=== PATIENT | female | born 1985 | race Hispanic/Latino ===

== ENCOUNTER 2019-03-16 13:19 | Emergency (ER) | payer OTHER, SELFPAY ==
[2019-03-16] MEDS ORDERED: ACETAMINOPHEN 325 MG TABLET ONE (14:47)
[2019-03-16] MEDS ORDERED: NA CHLORIDE 0.9% 1,000 ML ONE ×2 (14:47→17:53)
[2019-03-16 14:58] LABS: Absolute Lymphocytes (CBC) 0.7 K/uL (0.7-4.9); Absolute Monocytes 0.7 K/uL (0.1-1.3); Absolute Neutrophil 13.8 K/uL (1.8-8.0); Basophils % 0.2 % (0-1.3); Eosinophils % 0.1 % (0-4.4); Hematocrit 35.5 % (36.0-45.0); Lymphocytes % 4.8 % (15.3-44.8); MPV 10.3 fL (7.6-11.3); Monocytes % 4.5 % (3.3-12.3); RBC Red Blood Cell Count 4.04 M/uL (3.86-4.86)
[2019-03-16] MEDS ORDERED: ACETAMINOPHEN 500 MG TAB ONE (15:11)
[2019-03-16 15:12] LABS: Potassium 3.3 mmol/L (3.5-5.1)
[2019-03-16 15:23] LABS: Urine Blood 2+ (NEG); Urine Glucose NEGATIVE (NEG); Urine Protein NEGATIVE (NEG); Urine Specific Gravity 1.015 (1.005-1.030)
[2019-03-16 15:27] LABS: Urine Bacteria <20 /HPF (<20); Urine RBC <5 /HPF (NONE SEEN); Urine Yeast PRESENT (NONE SEEN)
[2019-03-16 15:30] LABS: Urine Culture Reflex Order REFLEXED
[2019-03-16] MEDS ORDERED: FENTANYL CITR 100 MCG/2 ML ONE (15:52)
--- NOTE | 2019-03-16 16:00 | RAD REPORT ---
EXAM DESCRIPTION: CTAbdomen Pelvis W Contrast - 03/16/2019 3:49 pm CLINICAL HISTORY: Abdominal pain. iv only;Abd pain COMPARISON: No comparisons TECHNIQUE: Biphasic CT imaging of the abdomen and pelvis was performed with 100 ml non-ionic IV cont rast. All CT scans are performed using dose optimization technique as appropriate and may include automated exposure control or mA/KV adjustment according to patient size. FINDINGS: The lung bases are clear. The liver, spleen, pancreas, adrenal glands and kidneys are within normal limits. No bowel obstruction, free air, free fluid or abscess. The appendix is normal. No evidence of signi ficant lymphadenopathy. No suspicious bony findings. IMPRESSION: No acute intra-abdominal or pelvic finding.
--- NOTE | 2019-03-16 16:56 | EDPHYS ---
Physician Documentation [facility] Name: Miladis Rodriguez Age: 33 yrs Sex: Female : 1985 Arrival Date: 03/16/2019 Time: 13:22 Bed 16 Private MD: ED Physician Guero Moore HPI: 03/16 15:18 This 33 yrs old Female presents to ER via Ambulatory with complaints of Leg jr8 Injury. 15:18 The patient presents with pain. The complaints affect the medial aspect of left thigh jr8 and left quadriceps. Context: The problem was sustained at work, resulted from twisting of the extremity. Onset: The symptoms/episode began/occurred acutely, today. Modifying factors: The symptoms are alleviated by nothing. the symptoms are aggravated by movement, weight bearing. Associated signs and symptoms: The patient has no apparent associated signs or symptoms. Treatment prior to arrival includes: no previous treatment. Severity of symptoms: At their worst the symptoms were moderate, in the emergency department the symptoms are unchanged. The patient has not experienced similar symptoms in the past. The patient has not recently seen a physician. 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 Pain since then. Upon triage by nurse. Patient found to have fever and tachycardia. Denies feeling bad. No other symptoms reported . 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 - Social history:: Smoking status: Patient/guardian denies using tobacco. - Ebola Screening: : No symptoms or risks identified at this time. ROS: 15:18 Eyes: Negative for injury, pain, redness, and discharge, ENT: Negative for injury, jr8 pain, and discharge, Neck: Negative for injury, pain, and swelling, Cardiovascular: Negative for chest pain, palpitations, and edema, Respiratory: Negative for shortness of breath, cough, wheezing, and pleuritic chest pain, Abdomen/GI: Negative for abdominal pain, nausea, vomiting, diarrhea, and constipation, Back: Negative for injury and pain, Skin: Negative for injury, rash, and discoloration, Neuro: Negative for headache, weakness, numbness, tingling, and seizure. 15:18 Constitutional: Positive for fever. 15:18 MS/extremity: Positive for pain, tenderness, of the left leg. Exam: 15:18 Eyes: Pupils equal round and reactive to light, extra-ocular motions intact. Lids and jr8 lashes normal. Conjunctiva and sclera are non-icteric and not injected. Cornea within normal limits. Periorbital areas with no swelling, redness, or edema. ENT: Nares patent. No nasal discharge, no septal abnormalities noted. Tympanic membranes are normal and external auditory canals are clear. Oropharynx with no redness, swelling, or masses, exudates, or evidence of obstruction, uvula midline. Mucous membranes moist. Neck: Trachea midline, no thyromegaly or masses palpated, and no cervical lymphadenopathy. Supple, full range of motion without nuchal rigidity, or vertebral point tenderness. No Meningismus. Cardiovascular: Regular rate and rhythm with a normal S1 and S2. No gallops, murmurs, or rubs. Normal PMI, no JVD. No pulse deficits. Respiratory: Lungs have equal breath sounds bilaterally, clear to auscultation and percussion. No rales, rhonchi or wheezes noted. No increased work of breathing, no retractions or nasal flaring. Back: No spinal tenderness. No costovertebral tenderness. Full range of motion. Neuro: Awake and alert, GCS 15, oriented to person, place, time, and situation. Cranial nerves II-XII grossly intact. Motor strength 5/5 in all extremities. Sensory grossly intact. Cerebellar exam normal. Normal gait. 15:18 Abdomen/GI: Inspection: obese Bowel sounds: active, all quadrants, Palpation: soft, in all quadrants, moderate abdominal tenderness, in the left lower quadrant, mass, is not appreciated, rebound tenderness, is not appreciated, voluntary guarding, is not appreciated, involuntary guarding, is not appreciated, no appreciated organomegaly, Indicators: McBurney's point is not tender, Celeste's sign is negative, Rovsing's sign is negative, Liver: tenderness, is not appreciated. 15:18 Musculoskeletal/extremity: Extremities: grossly normal except: noted in the left leg: Patient has tenderness to the muscles of the left lateral and anterior thigh. No trauma noted. Subsequent finding of superficial laceration with erythema noted to left lateral calf with mild tenderness , ROM: full active range of motion, full passive range of motion, limited active range of motion due to pain, limited passive range of motion due to pain, Circulation is intact in all extremities. Sensation intact. Vital Signs: 13:27 BP 135 / 92; Pulse 125; Resp 16; Temp 101.3; Pulse Ox 98% on R/A; Weight 74.39 kg; la1 Height 4 ft. 10 in. (147.32 cm); Pain 7/10; 16:00 BP 115 / 80; Pulse 116; Resp 18 S; Temp 101.7(O); Pulse Ox 99% on R/A; Pain 7/10; aa5 16:50 BP 111 / 67; Pulse 111; Resp 16 S; Temp 98.5(O); Pulse Ox 99% on R/A; Pain 4/10; aa5 17:26 BP 110 / 84; Pulse 115; Resp 18 S; Temp 100.9(O); Pulse Ox 99% on R/A; aa5 18:40 BP 118 / 79; Pulse 105; Resp 18; Temp 101.2(O); Pulse Ox 98% on R/A; Pain 4/10; aa5 19:24 BP 113 / 84; Pulse 102; Resp 18; Temp 99.9(O); Pulse Ox 100% on R/A; tl2 20:40 BP 107 / 74; Pulse 105; Resp 18; Temp 99.9(O); Pulse Ox 100% ; tl2 13:27 Body Mass Index 34.28 (74.39 kg, 147.32 cm) la1 17:26 PA notified of VS aa5 MDM: 13:44 Patient medically screened. jr8 16:53 Data reviewed: vital signs, nurses notes, lab test result(s), radiologic studies, CT jr8 scan. Data interpreted: Pulse oximetry: on room air is 99 %. Interpretation: normal. Counseling: I had a detailed discussion with the patient and/or guardian regarding: the historical points, exam findings, and any diagnostic results supporting the discharge/admit diagnosis, lab results, radiology results, the need for outpatient follow up, a family practitioner, to return to the emergency department if symptoms worsen or persist or if there are any questions or concerns that arise at home. Response to treatment: the patient's symptoms have markedly improved after treatment. 03/16 14:30 Order name: Basic Metabolic Panel; Complete Time: 15:18 [facility] 03/16 18:28 Interpretation: Normal except: K 3.3; GLUC 118; GFR 78; CA 8.3. 03/16 14:30 Order name: CBC with Diff; Complete Time: 15:18 [facility] 03/16 18:27 Interpretation: Normal except: WBC 15.3; HGB 11.8; HCT 35.5; JOSELYN% 90.4; LYM% 4.8; NEUT cp A 13.8. 03/16 14:30 Order name: Creatinine for Radiology; Complete Time: 15:18 [facility] 03/16 14:30 Order name: Blood Culture Adult (2) [facility] 03/16 14:30 Order name: Urine Microscopic Only; Complete Time: 15:32 [facility] 03/16 18:27 Interpretation: Normal except: YEAST PRESENT; BUD PRESENT. 03/16 15:19 Order name: Urine Dipstick--Ancillary (enter results); Complete Time: 15:23 03/16 15:19 Order name: CT Abd/Pelvis - W/Contrast; Complete Time: 16:18 [facility] 03/16 15:19 Order name: Urine --Ancillary (enter results); Complete Time: 15:23 03/16 15:33 Order name: Urine Culture [facility] 03/16 17:33 Order name: Lactate [facility] 03/16 17:33 Order name: Procalcitonin; Complete Time: 18:22 [facility] 03/16 18:29 Interpretation: Within normal limits: Procalcitonin < 0.05. 03/16 17:34 Order name: Lactate; Complete Time: 18:09 [facility] 03/16 18:28 Interpretation: Within normal limits: LAC 0.8. 03/16 18:01 Order name: CPK; Complete Time: 18:26 [facility] 03/16 18:26 Interpretation: Reviewed. 03/16 18:51 Order name: Wound Culture aa5 03/16 14:30 Order name: IV Saline Lock; Complete Time: 14:52 [facility] 03/16 14:30 Order name: Labs collected and sent; Complete Time: 14:52 [facility] 03/16 14:30 Order name: Urine Test (obtain specimen); Complete Time: 15:03 [facility] 03/16 14:30 Order name: Urine Dipstick-Ancillary (obtain specimen); Complete Time: 15:03 jr8 03/16 18:33 Order name: Vital Signs: please update vitals; Complete Time: 18:40 cp Administered Medications: 14:51 Drug: NS 0.9% 1000 ml Route: IV; Rate: 1000 ml; Site: left antecubital; sg 16:40 Follow up: IV Status: Completed infusion; IV Intake: 1000ml aa5 15:03 Drug: Tylenol 1000 mg Route: PO; sg 16:00 Follow up: Response: No adverse reaction; Temperature is increased aa5 16:00 Drug: fentaNYL (PF) 50 mcg Route: IVP; Site: left antecubital; aa5 16:40 Follow up: Response: No adverse reaction; Pain is decreased aa5 17:20 Drug: Rocephin 1 grams Route: IV; Rate: calculated rate; Site: left antecubital; aa5 17:44 Drug: NS 0.9% 1000 ml Route: IV; Rate: 1000 ml; Site: left antecubital; aa5 19:00 Follow up: IV Status: Completed infusion; IV Intake: 1000ml aa5 17:44 Drug: Motrin 800 mg Route: PO; aa5 20:42 Follow up: Response: No adverse reaction; Temperature is decreased tl2 18:42 Drug: Bactrim (160 mg-800 mg (DS) 1 tablet Route: PO; aa5 20:42 Follow up: Response: No adverse reaction tl2 19:28 Drug: Clindamycin 900 mg Route: IVPB; Infused Over: 30 mins; Site: left antecubital; tl2 20:41 Follow up: IV Status: Completed infusion; IV Intake: 50ml tl2 Disposition: 03/16/19 19:55 Discharged to Home. Impression: Cellulitis of left lower limb - left upper leg. - Condition is Stable. - Discharge Instructions: Cellulitis, Adult. - Prescriptions for Clindamycin HCl 300 mg Oral Capsule - take 1 capsule by ORAL route every 6 hours for 10 days; 40 capsule. Ibuprofen 800 mg Oral Tablet - take 1 tablet by ORAL route every 8 hours As needed take with food; 30 tablet. Bactrim DS 800- 160 mg Oral Tablet - take 1 tablet by ORAL route every 12 hours for 10 days; 20 tablet. - Medication Reconciliation Form, Thank You Letter, Antibiotic Education, Prescription Opioid Use, Work release form form. - Follow up: Constantino Ramos DO; When: 2 - 3 days; Reason: Recheck today's complaints. - Problem is new. - Symptoms have improved. Addendum: 03/19/2019 08:39 Co-signature as Attending Physician, Guero Moore MD I agree with the assessment and c keita plan of care. Signatures: Dispatcher [employer] EDCelso Anderson RN RN sg Anderson, Corey, MD MD cha Calderon, Audri, RN RN aa5 Zaid Mary PA PA jr8 Madi Pineda RN RN la1 Guero Mcdaniels PA PA cp Marifer Lewis RN RN tl2 Corrections: (The following items were deleted from the chart) 03/16 17:33 16:54 03/16/2019 16:54 Discharged to Home. Impression: Strain of unspecified muscles, jr8 fascia and tendons at thigh level, left thigh; Local infection of the skin and subcutaneous tissue, unspecified. Condition is Stable. Forms are Medication Reconciliation Form, Thank You Letter, Antibiotic Education, Prescription Opioid Use. Follow up: Private Physician; When: 2 - 3 days; Reason: Wound Recheck, If symptoms return, Recheck today's complaints, Continuance of care, Re-evaluation by your physician. Problem is new. Symptoms have improved. jr8 18:28 18:27 Normal except: K 3.3; GLUC 118; GFR 78. cp cp 20:56 19:55 03/16/2019 19:55 Discharged to Home. Impression: Cellulitis of left lower limb - tl2 left upper leg. Condition is Stable. Prescriptions for Ibuprofen 800 mg Oral Tablet - take 1 tablet by ORAL route every 12 hours As needed take with food; 20 tablet, Cyclobenzaprine 10 mg Oral Tablet - take 1 tablet by ORAL route every 8 hours As needed; 30 tablet, Bactrim DS 800-160 mg Oral Tablet - take 1 tablet by ORAL route every 12 hours for 10 days; 20 tablet. and Forms are Medication Reconciliation Form, Thank You Letter, Antibiotic Education, Prescription Opioid Use. Follow up: Constantino Ramos; When: 2 - 3 days; Reason: Recheck today's complaints. Problem is new. Symptoms have improved. cp
--- NOTE | 2019-03-16 16:56 | ER ---
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 Denies any other symptoms. Transition of care: patient was not received from another setting of care. Onset of symptoms was March 16, 2019. Risk Assessment: Do you want to hurt yourself or someone else? Patient reports no desire to harm self or others. Initial Sepsis Screen: Does the patient meet any 2 criteria? Temp <36.0*C (96.8*F)) or > 38.3*C (100.9*F). HR > 90 bpm. Does the patient have a suspected source of infection? No. Patient's initial sepsis screen is negative. Care prior to arrival: None. 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 - Social history:: Smoking status: Patient/guardian denies using tobacco. - Ebola Screening: : No symptoms or risks identified at this time. Screenin:00 Abuse screen: Denies threats or abuse. Nutritional screening: No deficits noted. aa5 Tuberculosis screening: No symptoms or risk factors identified. Fall Risk None identified. Assessment: 14:00 General: Appears uncomfortable, Behavior is calm, cooperative. Pain: Complains of pain aa5 in lateral aspect of left thigh Pain does not radiate. Pain currently is 7 out of 10 on a pain scale. Quality of pain is described as sharp, shooting, Is continuous. Neuro: Level of Consciousness is awake, alert, obeys commands, Oriented to person, place, time, situation. Cardiovascular: Heart tones S1 S2 present Rhythm is regular. Respiratory: Airway is patent Respiratory effort is even, unlabored, Respiratory pattern is regular, symmetrical, Breath sounds are clear bilaterally. Denies cough, shortness of breath. GI: Patient currently denies diarrhea, nausea, vomiting. : Denies burning with urination, inability to void, urinary frequency, urgency. EENT: Denies nasal congestion, nasal discharge, sore throat . Derm: Skin is pink, warm \T\ dry. Musculoskeletal: Range of motion: intact in all extremities. 14:25 Reassessment: Laceration that is approximately 0.5 in long that is scabbed noted to aa5 lateral aspect of left thigh with surrounding redness to site noted. . 16:00 Reassessment: Patient is alert, oriented x 3, equal unlabored respirations, skin aa5 warm/dry/pink. Patient states symptoms have not improved. 16:50 Reassessment: Patient is alert, oriented x 3, equal unlabored respirations, skin aa5 warm/dry/pink. Patient states feeling better. 17:26 Reassessment: Patient is alert, oriented x 3, equal unlabored respirations, skin aa5 warm/dry/pink. 17:43 Reassessment: Patient is alert, oriented x 3, equal unlabored respirations, skin aa5 warm/dry/pink. Lactate and procalcitonin drawn and sent to lab, pt notified of wait time . 18:40 Reassessment: Patient is alert, oriented x 3, equal unlabored respirations, skin aa5 warm/dry/pink. Vital Signs: 13:27 BP 135 / 92; Pulse 125; Resp 16; Temp 101.3; Pulse Ox 98% on R/A; Weight 74.39 kg; la1 Height 4 ft. 10 in. (147.32 cm); Pain 7/10; 16:00 BP 115 / 80; Pulse 116; Resp 18 S; Temp 101.7(O); Pulse Ox 99% on R/A; Pain 7/10; aa5 16:50 BP 111 / 67; Pulse 111; Resp 16 S; Temp 98.5(O); Pulse Ox 99% on R/A; Pain 4/10; aa5 17:26 BP 110 / 84; Pulse 115; Resp 18 S; Temp 100.9(O); Pulse Ox 99% on R/A; aa5 18:40 BP 118 / 79; Pulse 105; Resp 18; Temp 101.2(O); Pulse Ox 98% on R/A; Pain 4/10; aa5 19:24 BP 113 / 84; Pulse 102; Resp 18; Temp 99.9(O); Pulse Ox 100% on R/A; tl2 20:40 BP 107 / 74; Pulse 105; Resp 18; Temp 99.9(O); Pulse Ox 100% ; tl2 13:27 Body Mass Index 34.28 (74.39 kg, 147.32 cm) la1 17:26 PA notified of VS aa5 ED Course: 13:22 Patient arrived in ED. rg4 13:27 Triage completed. la1 13:28 Arm band placed on left wrist. Antipyretics given from triage as ordered by an ER la1 provider. 13:32 Amber Gaona, ALEX is Primary Nurse. aa5 13:41 Zaid Mary PA is PHCP. jr8 13:41 Guero Moore MD is Attending Physician. jr8 14:00 Patient has correct armband on for positive identification. Bed in low position. Call aa5 light in reach. Side rails up X 1. 14:35 Initial lab(s) drawn, by me, sent to lab. First set of blood cultures drawn by me. sg Inserted saline lock: 20 gauge in left antecubital area, using aseptic technique. Blood collected. 14:50 Second set of blood cultures drawn by me. sg 15:24 Radiology exam delayed due to test not completed at this time. az 15:50 CT Abd/Pelvis - W/Contrast In Process Unspecified. EDMS 15:50 CT completed. Patient tolerated procedure well. Patient moved back from CT. bq 18:15 PHCP role handed off by Zaid Mary PA cp 18:15 Guero Mcdaniels PA is PHCP. cp 18:42 Ultrasound completed. Patient tolerated well. sg3 19:05 Report given to Marifer Lewis RN. aa5 19:53 Constantino Ramos DO is Referral Physician. cp 20:40 No provider procedures requiring assistance completed. IV discontinued, intact, tl2 bleeding controlled, No redness/swelling at site. Pressure dressing applied. Administered Medications: 14:51 Drug: NS 0.9% 1000 ml Route: IV; Rate: 1000 ml; Site: left antecubital; sg 16:40 Follow up: IV Status: Completed infusion; IV Intake: 1000ml aa5 15:03 Drug: Tylenol 1000 mg Route: PO; sg 16:00 Follow up: Response: No adverse reaction; Temperature is increased aa5 16:00 Drug: fentaNYL (PF) 50 mcg Route: IVP; Site: left antecubital; aa5 16:40 Follow up: Response: No adverse reaction; Pain is decreased aa5 17:20 Drug: Rocephin 1 grams Route: IV; Rate: calculated rate; Site: left antecubital; aa5 17:44 Drug: NS 0.9% 1000 ml Route: IV; Rate: 1000 ml; Site: left antecubital; aa5 19:00 Follow up: IV Status: Completed infusion; IV Intake: 1000ml aa5 17:44 Drug: Motrin 800 mg Route: PO; aa5 20:42 Follow up: Response: No adverse reaction; Temperature is decreased tl2 18:42 Drug: Bactrim (160 mg-800 mg (DS) 1 tablet Route: PO; aa5 20:42 Follow up: Response: No adverse reaction tl2 19:28 Drug: Clindamycin 900 mg Route: IVPB; Infused Over: 30 mins; Site: left antecubital; tl2 20:41 Follow up: IV Status: Completed infusion; IV Intake: 50ml tl2 Intake: 16:40 IV: 1000ml; Total: 1000ml. aa5 19:00 IV: 1000ml; Total: 2000ml. aa5 20:41 IV: 50ml; Total: 2050ml. tl2 Outcome: 16:54 Discharge ordered by . jr8 19:55 Discharge ordered by . cp 20:40 Discharged to home ambulatory. tl2 20:40 Condition: stable 20:40 Discharge instructions given to patient, Instructed on discharge instructions, follow up and referral plans. medication usage, Demonstrated understanding of instructions, follow-up care, medications, Prescriptions given X 4. 20:56 Patient left the ED. tl2 Addendum: 03/19/2019 11:04 Addendum: Culture Results: Positive wound culture. Bacteria is resistant to, has s s intermediate sensitivity, or is not tested against prescribed antibiotics. 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 Phone call Attempt #1 attempted to call patient as sensitivities are not routinely done on this identified organism. No answer, unable to leave VM. 11:05 Addendum: Culture Results: Certified letter sent to listed address for patient. s s Signatures: Dispatcher [employer] EDCelso Anderson, RN RN sg Gin Abdi Audri RN RN aa5 Tanisha Minor RN RN Zaid Rowe PA PA jr8 Madi Pineda RN RN la1 Guero Mcdaniels PA PA cp Knox, Taylor, RN RN 2 Eufemia Burgess [facility] Rayne Baptiste 3 Carie Jules Corrections: (The following items were deleted from the chart) 03/16 14:31 14:00 Pain: Complains of pain in lateral aspect of left thigh Pain does not radiate. aa5 Quality of pain is described as sharp, shooting, Is continuous, aa5 17:32 17:26 BP 110 / 84; Pulse 115bpm; Resp 18bpm; Spontaneous; Pulse Ox 99% RA; Temp 100.9F aa5 Oral; aa5 19:29 19:24 BP 113 / 84; tl2 tl2 19:49 19:24 BP 113 / 84; Pulse 102bpm; Resp 18bpm; Pulse Ox 100% RA; tl2 tl2
[2019-03-16] MEDS ORDERED: CEFTRIAXONE/SWI 1gm 1 GM/10 ML SYR ONE (17:37)
[2019-03-16] MEDS ORDERED: IBUPROFEN 400 MG TAB ONE (17:53)
[2019-03-16] MEDS ORDERED: SMZ./TMP. 800/160 MG TABLET ONE (18:56)
[2019-03-16 21:17] VITALS: TEMP 99.9; O2SAT 100
[2019-03-16 21:18] VITALS: BP 107/74
== END 2019-03-16 20:56 | disposition home or self-care (01) ==
LOC: ER 13:19
DX: L03.116 Cellulitis of left lower limb (principal)
CPT/HCPCS: 36415; 74177; 80048; 81003; 81015; 81025; 82550; 83605; 84145; 85025; 87040; 87070; 87086; 87088; 87205; 96361; 96365; 96375; 99284; J0696; J3010; J7030; Q9967

== ENCOUNTER 2022-05-02 12:16 | Emergency (ER) | payer SELFPAY ==
--- NOTE | 2022-05-02 13:57 | RAD REPORT ---
EXAM DESCRIPTION: RAD - Hand Left 3 View - 05/02/2022 1:24 pm CLINICAL HISTORY: PAIN COMPARISON: None. FINDINGS: No fracture, dislocation or periosteal reaction noted. No joint space narrowing, spurring or erosive changes the joint spaces. No foreign body or other soft tissue abnormality. IMPRESSION: Negative left hand examination.
--- NOTE | 2022-05-02 14:26 | EDPHYS ---
Physician Documentation [facility] Name: Miladis Rodriguez Age: 36 yrs Sex: Female : 1985 Arrival Date: 05/02/2022 Time: 12:19 Bed 12 Private MD: ED Physician Cody Adamson HPI: 05/02 14:00 This 36 yrs old Female presents to ER via Ambulatory with complaints of Hand cp Pain. 14:00 The patient or guardian reports pain, weakness, tingling of fingertips. The complaints cp affect the left index and left middle and left fourth and left fifth fingers. Onset: The symptoms/episode began/occurred 3 week(s) ago. 14:00 Associated signs and symptoms: Pertinent positives: tingling distally, Pertinent cp negatives: cyanosis distally, fever, numbness distally. 14:00 Severity of symptoms: in the emergency department the symptoms are unchanged, despite cp home interventions. 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 - Social history:: Smoking status: Patient denies any tobacco usage or history of. ROS: 14:05 Constitutional: Negative for body aches, chills, fever, poor PO intake. cp 14:05 Eyes: Negative for injury, pain, redness, and discharge. cp 14:05 Neck: Negative for pain with movement, pain at rest. 14:05 Cardiovascular: Negative for chest pain, palpitations. 14:05 Respiratory: Negative for cough, shortness of breath, wheezing. 14:05 Abdomen/GI: Negative for abdominal pain, nausea, vomiting, and diarrhea. 14:05 Back: Negative for pain at rest, pain with movement. 14:05 MS/extremity: Positive for pain, tingling, of the left hand, Negative for injury or acute deformity, decreased range of motion, swelling, warmth. 14:05 All other systems are negative. Exam: 14:10 Constitutional: The patient appears in no acute distress, alert, awake, non-toxic, well cp developed, well nourished. 14:10 Head/Face: Normocephalic, atraumatic. cp 14:10 Neck: C-spine: vertebral tenderness, is not appreciated, crepitus, is not appreciated, ROM/movement: is normal, is supple, without pain, no range of motions limitations, no nuchal rigidity. 14:10 Chest/axilla: Inspection: normal. 14:10 Cardiovascular: Rate: normal, Pulses: Pulses are 2+ in left radial artery. 14:10 Respiratory: the patient does not display signs of respiratory distress, Respirations: normal, no use of accessory muscles. 14:10 Back: pain, is absent, ROM is normal. 14:10 Musculoskeletal/extremity: Extremities: grossly normal except: noted in the left hand: pain, tenderness, There is no evidence of decreased ROM, swelling, ROM: full active range of motion, in the left hand, Perfusion: the extremity is normally perfused throughout, the left index and left middle and left fourth and left fifth fingers Tingling of extremity. Vital Signs: 12:47 BP 138 / 96; Pulse 72; Resp 16; Temp 97.6; Pulse Ox 100% ; Weight 74.84 kg; Height 4 ap3 ft. 9 in. (144.78 cm); Pain 5/10; 12:47 Body Mass Index 35.71 (74.84 kg, 144.78 cm) ap3 MDM: 14:25 Patient medically screened. cp 14:25 Data reviewed: vital signs, nurses notes, radiologic studies, plain films. 14:25 Counseling: I had a detailed discussion with the patient and/or guardian regarding: the historical points, exam findings, and any diagnostic results supporting the discharge/admit diagnosis, radiology results, the need for outpatient follow up, a family practitioner, to return to the emergency department if symptoms worsen or persist or if there are any questions or concerns that arise at home. 14:25 Differential diagnosis: closed fracture, tendonitis. 05/02 12:49 Order name: XRAY Hand LEFT 3 View; Complete Time: 15:01 ap3 05/02 15:01 Interpretation: Report reviewed. 05/02 14:24 Order name: Wrist Splint; Complete Time: 14:39 cp Administered Medications: No medications were administered Disposition: 17:44 Co-signature as Attending Physician, Cody Adamson MD. rn Disposition Summary: 05/02/22 14:25 Discharge Ordered Location: Home cp Problem: new cp Symptoms: are unchanged cp Condition: Stable cp Diagnosis - Pain in left hand cp Followup: cp - With: Private Physician - When: 1 week - Reason: Recheck today's complaints Discharge Instructions: - Discharge Summary Sheet cp - Musculoskeletal Pain cp - Peripheral Neuropathy cp Forms: - Medication Reconciliation Form cp - Thank You Letter cp - Antibiotic Education cp - Prescription Opioid Use cp Prescriptions: - Ibuprofen 800 mg Oral Tablet - take 1 tablet by ORAL route every 8 hours As needed take with food; 30 tablet; cp Refills: 0, Product Selection Permitted Signatures: Dispatcher [employer] EDCody Bunch MD MD rn Page, Corey, PA PA cp Prokisch, Amanda RN RN ap3 Corrections: (The following items were deleted from the chart) 05/03 14:06 05/02 14:25 Counseling: I had a detailed discussion with the patient and/or guardian cp regarding: the historical points, exam findings, and any diagnostic results supporting the discharge/admit diagnosis, radiology results, to return to the emergency department if symptoms worsen or persist or if there are any questions or concerns that arise at home, cp
--- NOTE | 2022-05-02 14:26 | ER ---
Nurse's Notes [facility] Name: Miladis Rodriguez Age: 36 yrs Sex: Female : 1985 Arrival Date: 05/02/2022 Time: 12:19 Bed 12 Private MD: Diagnosis: Pain in left hand Presentation: 05/02 12:45 Chief complaint: Patient states: her left hand has been hurting for approx 3 weeks, and ap3 states the pain will sometimes radiate into her left arm. Coronavirus screen: At this time, the client does not indicate any symptoms associated with coronavirus-19. Ebola Screen: No symptoms or risks identified at this time. Initial Sepsis Screen: Does the patient meet any 2 criteria? No. Patient's initial sepsis screen is negative. Does the patient have a suspected source of infection? No. Patient's initial sepsis screen is negative. Risk Assessment: Do you want to hurt yourself or someone else? Patient reports no desire to harm self or others. Onset of symptoms was April 11, 2022. 12:45 Method Of Arrival: Ambulatory ap3 12:47 Acuity: BRIAN 4 ap3 Triage Assessment: 12:47 General: Appears in no apparent distress. Behavior is calm, cooperative, appropriate ap3 for age. Pain: Complains of pain in left hand Pain radiates to left arm. Neuro: Level of Consciousness is awake, alert, obeys commands, Oriented to person, place, time. Cardiovascular: Patient's skin is warm and dry. Respiratory: Airway is patent Respiratory effort is even, unlabored. 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 - Social history:: Smoking status: Patient denies any tobacco usage or history of. Screenin:48 Abuse screen: Denies threats or abuse. Nutritional screening: No deficits noted. ap3 Tuberculosis screening: No symptoms or risk factors identified. 14:45 Fall Risk None identified. ss Assessment: 14:45 General: Appears in no apparent distress. comfortable, Behavior is calm, cooperative. ss Pain: Complains of pain in left hand Pain currently is 5 out of 10 on a pain scale. Neuro: Level of Consciousness is awake, alert, obeys commands, Oriented to person, place, time, situation. Cardiovascular: Capillary refill < 3 seconds is brisk in bilateral fingers. Respiratory: Airway is patent Respiratory effort is even, unlabored, Respiratory pattern is regular, symmetrical. GI: No signs and/or symptoms were reported involving the gastrointestinal system. Derm: Skin is intact, is healthy with good turgor, Skin is Skin is pink, warm \T\ dry. normal. Musculoskeletal: Circulation, motion, and sensation intact. Range of motion: intact in all extremities. Vital Signs: 12:47 BP 138 / 96; Pulse 72; Resp 16; Temp 97.6; Pulse Ox 100% ; Weight 74.84 kg; Height 4 ap3 ft. 9 in. (144.78 cm); Pain 5/10; 12:47 Body Mass Index 35.71 (74.84 kg, 144.78 cm) ap3 ED Course: 12:19 Patient arrived in ED. rg4 12:48 Triage completed. ap3 12:48 Arm band placed on right wrist. ap3 13:16 Guero Mcdaniels PA is PHCP. cp 13:16 Cody Adamson MD is Attending Physician. cp 13:26 XRAY Hand LEFT 3 View In Process Unspecified. EDMS 14:33 Tanisha Minor, ALEX is Primary Nurse. ss 14:45 Patient has correct armband on for positive identification. Bed in low position. Call ss light in reach. 15:01 No provider procedures requiring assistance completed. Patient did not have IV access ss during this emergency room visit. Velcro wrist splint applied to left wrist. Administered Medications: No medications were administered Medication: 14:45 VIS not applicable for this client. ss Outcome: 14:25 Discharge ordered by . cp 15:01 Discharged to home ambulatory. ss 15:01 Condition: good 15:01 Discharge instructions given to patient, Instructed on discharge instructions, follow up and referral plans. Demonstrated understanding of instructions, follow-up care. 15:03 Patient left the ED. ss Signatures: Dispatcher [employer] EDMS Tanisha Minor RN RN ss Guero Mcdaniels PA PA cp Garcia, Rubi rg4 Jazmin Alexander RN RN ap3
[2022-05-02 15:08] VITALS: BP 138/96; TEMP 97.6; O2SAT 100
== END 2022-05-02 15:03 | disposition home or self-care (01) ==
LOC: ER 12:16
DX: M79.642 Pain in left hand (principal)
CPT/HCPCS: 99283

== ENCOUNTER 2023-02-15 09:55 | Emergency (ER) | payer SELFPAY ==
--- NOTE | 2023-02-15 11:23 | RAD REPORT ---
EXAM DESCRIPTION: RAD - Humerus Right - 02/15/2023 10:34 am CLINICAL HISTORY: Right arm pain status post fall FINDINGS: No fracture is seen
--- NOTE | 2023-02-15 11:24 | RAD REPORT ---
EXAM DESCRIPTION: RAD - Forearm Right - 02/15/2023 10:34 am CLINICAL HISTORY: Right arm pain status post fall FINDINGS: No fracture is seen.
--- NOTE | 2023-02-15 11:57 | ER ---
Nurse's Notes [facility] Name: Miladis Rodriguez Age: 37 yrs Sex: Female : 1985 Arrival Date: 02/15/2023 Time: 09:55 Bed 9 Private MD: Diagnosis: Fall on same level from slipping, tripping and stumbling without subsequent striking against object;Pain in right arm Presentation: 02/15 10:04 Chief complaint: Patient states: she fell on her right arm 02/10/2023, and has ap3 since had pain from her right wrist that will sometimes radiate into her right shoulder. patient rates her pain as a 6/10 on the pain scale at this time. Coronavirus screen: At this time, the client does not indicate any symptoms associated with coronavirus-19. Ebola Screen: No symptoms or risks identified at this time. Initial Sepsis Screen: Does the patient meet any 2 criteria? No. Patient's initial sepsis screen is negative. Does the patient have a suspected source of infection? No. Patient's initial sepsis screen is negative. Risk Assessment: Do you want to hurt yourself or someone else? Patient reports no desire to harm self or others. Onset of symptoms was February 10, 2023. 10:04 Method Of Arrival: Ambulatory ap3 10:04 Acuity: BRIAN 4 ap3 Triage Assessment: 10:06 General: Appears in no apparent distress. Behavior is calm, cooperative. Pain: ap3 Complains of pain in right wrist Pain radiates to right arm Pain began 02/10/2023. Neuro: Level of Consciousness is awake, alert, obeys commands, Oriented to person, place, time, situation. Cardiovascular: Patient's skin is warm and dry. Respiratory: Airway is patent Respiratory effort is even, unlabored, Respiratory pattern is regular, symmetrical. 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 - Social history:: Smoking status: Patient denies any tobacco usage or history of. Screenin:07 Abuse screen: Denies threats or abuse. Nutritional screening: No deficits noted. ap3 Tuberculosis screening: No symptoms or risk factors identified. 11:26 [facility] ED Fall Risk Assessment (Adult) History of falling in the last 3 months, nj1 including since admission Yes- single mechanical fall (1 pt) Confusion or Disorientation No (0 pts) Intoxicated or Sedated No (0 pts) Impaired Gait No (0 pts) Mobility Assist Device Used No (0 pt) Altered Elimination No (0 pt) Score/Fall Risk Level 0 - 2 = Low Risk Oriented to surroundings, Maintained a safe environment, Hourly rounding (assess needs \T\ fall precautionary measures) done. Assessment: 11:10 Reassessment: Patient appears in no apparent distress at this time. Patient and/or nj1 family updated on plan of care and expected duration. Pain level reassessed. Patient is alert, oriented x 3, equal unlabored respirations, skin warm/dry/pink. See triage assessment. 11:10 Pain: Complains of pain in right arm Pain currently is 6 out of 10 on a pain scale. nj1 12:15 Pain: Complains of pain in right arm Pain currently is 6 out of 10 on a pain scale. nj1 12:15 Reassessment: Patient appears in no apparent distress at this time. Patient and/or nj1 family updated on plan of care and expected duration. Pain level reassessed. Patient is alert, oriented x 3, equal unlabored respirations, skin warm/dry/pink. Vital Signs: 10:04 BP 156 / 97; Pulse 74; Resp 17; Temp 98.9; Pulse Ox 100% ; Weight 74.84 kg; Height 4 ap3 ft. 11 in. ; Pain 6/10; 12:15 BP 133 / 84; Pulse 67; Resp 18; Pulse Ox 100% on R/A; nj1 10:04 Body Mass Index 33.33 (74.84 kg, 149.86 cm) ap3 10:04 Pain Scale: Adult ap3 ED Course: 09:59 Patient arrived in ED. ts1 10:06 Triage completed. ap3 10:07 Arm band placed on left wrist. ap3 10:09 Camille Mg FNP-C is PHCP. kb 10:09 Cody Adamson MD is Attending Physician. kb 10:34 Forearm Right XRAY In Process Unspecified. EDMS 10:34 Humerus Right XRAY In Process Unspecified. EDMS 11:05 Chelsea Heaton, RN is Primary Nurse. nj1 11:10 Patient has correct armband on for positive identification. Bed in low position. Call nj1 light in reach. Adult w/ patient. 12:15 Patient did not have IV access during this emergency room visit. nj1 12:26 No provider procedures requiring assistance completed. nj1 Administered Medications: No medications were administered Medication: 12:26 VIS not applicable for this client. nj1 Outcome: 11:56 Discharge ordered by . kb 12:15 Discharged to home ambulatory. nj1 12:15 Condition: stable 12:15 Discharge instructions given to patient, family, Instructed on discharge instructions, follow up and referral plans. medication usage, safety practices, Demonstrated understanding of instructions, follow-up care, medications, Prescriptions given X 1. 12:27 Patient left the ED. nj1 Signatures: Dispatcher [employer] EDMS Camille Mg, SHERIN[employer]OR GENER[employer] BUILDING-Jazmin Luogn RN RN ap3 Chelsea Heaton RN RN nj1 Cuca Kelsey PAS PAS ts1 Corrections: (The following items were deleted from the chart) 12: 12:25 Reassessment: Patient appears in no apparent distress at this time. Patient nj1 and/or family updated on plan of care and expected duration. Pain level reassessed. Patient is alert, oriented x 3, equal unlabored respirations, skin warm/dry/pink. nj1 12:26 12:25 Pain: Complains of pain in right arm Pain currently is 6 out of 10 on a pain [facility] scale. nj1 12:27 11:10 Reassessment: Patient appears in no apparent distress at this time. Patient nj1 and/or family updated on plan of care and expected duration. Pain level reassessed. Patient is alert, oriented x 3, equal unlabored respirations, skin warm/dry/pink. See triage assessment nj1
--- NOTE | 2023-02-15 11:57 | EDPHYS ---
Physician Documentation [facility] Name: Miladis Rodriguez Age: 37 yrs Sex: Female : 1985 Arrival Date: 02/15/2023 Time: 09:55 Bed 9 Private MD: ED Physician Cody Adamson HPI: 02/15 16:14 This 37 yrs old Female presents to ER via Ambulatory with complaints of Fall kb Injury. 16:14 Details of fall: The patient fell from an upright position. The patient has not kb recently seen a physician. 16:15 Onset: The symptoms/episode began/occurred 7 day(s) ago. Associated injuries: The kb patient sustained right arm, painful injury. Severity of symptoms: At their worst the symptoms were moderate, in the emergency department the symptoms are unchanged. The patient has not experienced similar symptoms in the past. 16:16 Pt reports she fell onto right arm 7 days ago and is still having pain. 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 - Social history:: Smoking status: Patient denies any tobacco usage or history of. ROS: 16:09 Constitutional: Negative for fever, chills, and weight loss. kb 16:09 MS/extremity: Positive for pain, of the right arm. 16:09 All other systems are negative. Exam: 16:14 Constitutional: This is a well developed, well nourished patient who is awake, alert, kb and in no acute distress. Head/Face: Normocephalic, atraumatic. ENT: Moist Mucous membranes Cardiovascular: Regular rate and rhythm with a normal S1 and S2. No gallops, murmurs, or rubs. No pulse deficits. Respiratory: Respirations even and unlabored. No increased work of breathing. Talking in full sentences Abdomen/GI: Soft, non-tender. No distention Skin: Warm, dry with normal turgor. Normal color. Neuro: Awake and alert, GCS 15, oriented to person, place, time, and situation. Moves all extremities. Normal gait. 16:14 Musculoskeletal/extremity: Extremities: grossly normal except: noted in the right arm: pain, ROM: intact in all extremities, Circulation is intact in all extremities. Sensation intact. Vital Signs: 10:04 BP 156 / 97; Pulse 74; Resp 17; Temp 98.9; Pulse Ox 100% ; Weight 74.84 kg; Height 4 ap3 ft. 11 in. ; Pain 6/10; 12:15 BP 133 / 84; Pulse 67; Resp 18; Pulse Ox 100% on R/A; nj1 10:04 Body Mass Index 33.33 (74.84 kg, 149.86 cm) ap3 10:04 Pain Scale: Adult ap3 MDM: 10:09 Patient medically screened. kb 15:33 Data reviewed: vital signs, nurses notes. kb 16:02 Differential diagnosis: contusion, fracture, sprain, strain. Counseling: I had a kb detailed discussion with the patient and/or guardian regarding: the historical points, exam findings, and any diagnostic results supporting the discharge/admit diagnosis, radiology results, the need for outpatient follow up, a family practitioner, to return to the emergency department if symptoms worsen or persist or if there are any questions or concerns that arise at home. 02/15 10:12 Order name: Forearm Right XRAY; Complete Time: 11:32 kb 02/15 10:12 Order name: Humerus Right XRAY; Complete Time: 11:32 kb Administered Medications: No medications were administered Disposition: 17:17 Co-signature as Attending Physician, Cody Adamson MD I reviewed the patient's care rn provided by the Advanced Practice Provider and agree with the diagnosis and treatment plan. Disposition Summary: 02/15/23 11:56 Discharge Ordered Location: Home kb Condition: Stable kb Diagnosis - Fall on same level from slipping, tripping and stumbling without subsequent kb striking against object - Pain in right arm kb Followup: kb - With: Emergency Department - When: As needed - Reason: Worsening of condition Followup: kb - With: Private Physician - When: 2 - 3 days - Reason: Recheck today's complaints, Continuance of care, Re-evaluation by your physician Discharge Instructions: - Discharge Summary Sheet kb - Musculoskeletal Pain kb Forms: - Medication Reconciliation Form kb - Thank You Letter kb - Antibiotic Education kb - Prescription Opioid Use kb Prescriptions: - Diclofenac Sodium 75 mg Oral tablet,delayed release (DR/EC) - take 1 tablet by ORAL route 2 times per day As needed; 30 tablet; Refills: 0, kb Product Selection Permitted Signatures: Dispatcher [employer] Camille Paredes, Cody Dangelo MD MD rn Jazmin Alexander RN RN ap3
[2023-02-15 12:32] VITALS: TEMP 98.9; O2SAT 100
[2023-02-15 12:33] VITALS: BP 133/84
== END 2023-02-15 12:27 | disposition home or self-care (01) ==
LOC: ER 09:55
DX: M79.601 Pain in right arm (principal); W01.0XXA Fall on same level from slipping, tripping and stumbling without subsequent striking against object, initial encounter
CPT/HCPCS: 99283

== ENCOUNTER 2023-06-03 10:45 | Emergency (ER) | payer SELFPAY ==
[2023-06-03] MEDS ORDERED: NA CHLORIDE 0.9% 1,000 ML ONE (11:07)
[2023-06-03] MEDS ORDERED: ONDANSETRON 4 MG/2 ML VIAL ONE (11:07)
[2023-06-03] MEDS ORDERED: KETOROLAC 30 MG/ML INJ ONE (11:07)
[2023-06-03 11:33] LABS: Specific Gravity 1.037 (1.005-1.030)
[2023-06-03 11:41] LABS: Specific Gravity > 1.030 (1.005-1.030); Urine Bacteria None Seen /HPF (<20); Urine Bilirubin NEGATIVE (Negative); Urine Blood 3+ (OVER) (Negative); Urine Clarity Extremely Turbid (Clear); Urine Color Yellow (Yellow); Urine Glucose NEGATIVE (Negative); Urine Mucus Slight /HPF (None Seen); Urine Protein 2+ (Negative); Urine RBC >50 /HPF (None Seen); Urine Urobilinogen 1+ (Normal); Urine pH 5.5 (5.0-7.0)
[2023-06-03 11:48] LABS: Absolute Lymphocytes (CBC) 1.6 K/uL (0.7-4.9); Hematocrit 28.1 % (36.0-45.0); Lymphocytes % 20.6 % (15.3-44.8); MCV 80.4 fL (80-100); MPV 8.7 fL (7.6-11.3); Platelets 233 thou/uL (152-406); RBC Red Blood Cell Count 3.49 M/uL (3.86-4.86)
[2023-06-03 12:06] LABS: ALT/SGPT 22 U/L (13-56); Albumin 2.8 g/dL (3.4-5.0); Alkaline Phosphatase 69 U/L (45-117); BUN Blood Urea Nitrogen 6 mg/dL (7-18); Bicarbonate 25 mEq/L (21-32); Glomerular Filtration Rate 109 ml/min (=/>90); Glucose Level 96 mg/dL (74-106); Lipase 41 U/L (13-75); Sodium Level 139 mEq/L (136-145)
[2023-06-03 12:10] LABS: AST/SGOT 8 U/L (15-37); Bilirubin Total < 0.1 mg/dL (0.2-1.0); Potassium 3.4 mEq/L (3.5-5.1)
--- NOTE | 2023-06-03 12:45 | RAD REPORT ---
EXAM DESCRIPTION: CT - Abdomen Pelvis W Contrast - 06/03/2023 12:25 pm CLINICAL HISTORY: ABD PAIN COMPARISON: Abdomen Pelvis W Contrast dated 03/16/2019 TECHNIQUE: Thin cut axial CT imaging of the abdomen and pelvis was performed following intravenous a dministration of 100 mL Isovue 300. Multiplanar reformats were generated and reviewed. All CT scans are performed using dose optimization technique as appropriate and may include automated exposure control or mA/KV adjustment according to patient size. FINDINGS: No suspicious findings in the lung bases. The liver shows numerous subcentimeter hypoattenuating foci too small to characterize, largest measur ing 7 millimeter in the inferior right lobe. Adrenal glands, spleen, and pancreas show no suspicious findings. Gallbladder is decompressed limiting evaluation. No evidence of intra or extrahepatic bilia ry ductal dilation. . Symmetric renal function is seen with no hydronephrosis or suspicious renal mass. Mildly prominent distal small bowel loops with fluid distention. No bowel wall thickening. Appendix i s unremarkable. No free air, free fluid or inflammatory stranding. No hernia, mass or bulky lymphaden opathy. The urinary bladder is without significant finding. Numerous cystic lesions in the region of the uterine cervix. Fluid accumulation within the endometria l cavity. Findings are not well evaluated. No suspicious adnexal lesions. No suspicious bony findings. IMPRESSION: Mildly prominent distal small bowel loops with fluid distention. Findings may relate to ongoing segmental enteritis. Please correlate clinically. Numerous cystic lesions in the region the uterine cervix, not well evaluated, could relate to numerou s nabothian cysts. Possibility of an underlying cervical mass cannot be excluded. Fluid accumulation within the endometrial cavity. Findings in the further evaluated by dedicated pelvic ultrasound, whic h can be performed on elective basis.
--- NOTE | 2023-06-03 13:13 | ER ---
Nurse's Notes [facility] Name: Miladis Rodriguez Age: 37 yrs Sex: Female : 1985 Arrival Date: 06/03/2023 Time: 10:45 Bed 20 Private MD: Diagnosis: Noninfective gastroenteritis and colitis, unspecified;Hematuria, unspecified Presentation: 06/03 10:54 Chief complaint: Patient states: R sided abd pain/ flank pain that has been ss intermittent x 1 week. + nausea. Coronavirus screen: Client denies travel out of the [place] in the last 14 days. Ebola Screen: Patient denies exposure to infectious person. Patient denies travel to an Ebola-affected area in the 21 days before illness onset. Initial Sepsis Screen: Does the patient meet any 2 criteria? No. Patient's initial sepsis screen is negative. Does the patient have a suspected source of infection? No. Patient's initial sepsis screen is negative. Risk Assessment: Do you want to hurt yourself or someone else? Patient reports no desire to harm self or others. Onset of symptoms was May 27, 2023. 10:54 Method Of Arrival: Ambulatory ss 10:54 Acuity: BRIAN 3 ss Historical: - Allergies: 10:56 No Known Allergies; ss - Home Meds: 10:56 None [Active]; ss - PMHx: 10:56 None; ss - PSHx: 10:56 None; ss - Immunization history:: Adult Immunizations up to date. - Social history:: Smoking status: unknown. Screenin:50 [facility] [place] ED Fall Risk Assessment (Adult) Score/Fall Risk Level 0 - 2 = Low Risk. Abuse eh3 screen: Denies threats or abuse. Denies injuries from another. Nutritional screening: No deficits noted. Tuberculosis screening: No symptoms or risk factors identified. Assessment: 10:50 General: Appears in no apparent distress. uncomfortable, Behavior is calm, cooperative, eh3 appropriate for age. Pain: Complains of pain in right lower quadrant Neuro: Level of Consciousness is awake, alert, obeys commands, Oriented to person, place, time, situation. Cardiovascular: Capillary refill < 3 seconds Patient's skin is warm and dry. Respiratory: Airway is patent Respiratory effort is even, unlabored, Respiratory pattern is regular, symmetrical. GI: Abdomen is round non-distended. Derm: Skin is healthy with good turgor, Skin is pink, warm \T\ dry. Musculoskeletal: Circulation, motion, and sensation intact. Range of motion: intact in all extremities. 11:45 Reassessment: Patient appears in no apparent distress at this time. Patient and/or eh3 family updated on plan of care and expected duration. Pain level reassessed. Patient is alert, oriented x 3, equal unlabored respirations, skin warm/dry/pink. 12:45 Reassessment: Patient appears in no apparent distress at this time. Patient and/or eh3 family updated on plan of care and expected duration. Pain level reassessed. Patient is alert, oriented x 3, equal unlabored respirations, skin warm/dry/pink. Vital Signs: 10:50 BP 128 / 85; Pulse 71; Resp 14; Temp 98.4(O); Pulse Ox 100% on R/A; eh3 11:42 BP 115 / 74; Pulse 71; Resp 16; Temp 98.3; Pulse Ox 98% ; Pain 5/10; sm8 12:45 BP 120 / 77; Pulse 68; Resp 18; Pulse Ox 100% on R/A; eh3 11:42 Pain Scale: Adult sm8 ED Course: 10:47 Patient arrived in ED. rg4 10:50 [facility]C [facility] kb 10:50 Jaquan Mejia MD is Attending Physician. kb 10:50 Patient has correct armband on for positive identification. Placed in gown. Bed in low eh3 position. Call light in reach. Side rails up X2. Provided Education on: Use of call goel. Pulse ox on. NIBP on. Door closed. Noise minimized. Lights dimmed. Warm blanket given. 10:50 Inserted saline lock: 20 gauge in left antecubital area, using aseptic technique. Blood eh3 collected. 10:53 Xiomara Mcdonald RN is Primary Nurse. eh3 10:56 Triage completed. ss 10:56 Arm band placed on right wrist. ss 12:27 CT Abd/Pelvis - IV Contrast Only In Process Unspecified. EDMS 13:19 No provider procedures requiring assistance completed. IV discontinued, intact, eh3 bleeding controlled, No redness/swelling at site. Pressure dressing applied. Administered Medications: 11:05 Drug: NS 0.9% IV 1000 ml Route: IV; Rate: 1 bolus; Site: left antecubital; eh3 12:30 Follow up: IV Status: Completed infusion; IV Intake: 1000ml 3 11:05 Drug: TORadol - Ketorolac IVP 15 mg Route: IVP; Site: left antecubital; eh3 12:00 Follow up: Response: No adverse reaction; Pain is decreased eh3 11:05 Drug: Ondansetron IVP 4 mg Route: IVP; Site: left antecubital; eh3 12:00 Follow up: Response: No adverse reaction; Nausea is decreased eh3 Medication: 13:19 VIS not applicable for this client. eh3 Intake: 12:30 IV: 1000ml; Total: 1000ml. 3 Outcome: 13:13 Discharge ordered by MD. álvarez 13:19 Discharged to home ambulatory. 3 13:19 Condition: stable 13:19 Discharge instructions given to patient, Instructed on discharge instructions, follow up and referral plans. medication usage, Demonstrated understanding of instructions, follow-up care, medications, Prescriptions given X 2. 13:24 Patient left the ED. 3 Signatures: Dispatcher [employer] EDMS Camille Mg, SERVER ENGINEER-C SERVER ENGINEER-Ckb Tanisha Martinez, RN RN Eufemia Choi 4 Xiomara Mcdonald RN RN 3 No Ramos 8
--- NOTE | 2023-06-03 13:13 | EDPHYS ---
Physician Documentation [facility] Name: Miladis Rodriguez Age: 37 yrs Sex: Female : 1985 Arrival Date: 06/03/2023 Time: 10:45 Bed 20 Private MD: ED Physician Jaquan Mejia HPI: 06/03 13:21 This 37 yrs old Female presents to ER via Ambulatory with complaints of Flank kb Pain. 13:21 The patient presents with abdominal pain right lower quadrant. Onset: The kb symptoms/episode began/occurred 1 week(s) ago. The symptoms do not radiate. Associated signs and symptoms: Pertinent positives: nausea, Pertinent negatives: diarrhea, fever, vomiting. The symptoms are described as constant. Modifying factors: The symptoms are alleviated by nothing, the symptoms are aggravated by nothing. Severity of pain: At its worst the pain was mild moderate in the emergency department the pain is unchanged. The patient has not experienced similar symptoms in the past. The patient has not recently seen a physician. Historical: - Allergies: 10:56 No Known Allergies; ss - Home Meds: 10:56 None [Active]; ss - PMHx: 10:56 None; ss - PSHx: 10:56 None; ss - Immunization history:: Adult Immunizations up to date. - Social history:: Smoking status: unknown. ROS: 13:20 Constitutional: Negative for fever, chills, and weight loss. kb 13:20 Abdomen/GI: Positive for abdominal pain, nausea, Negative for vomiting, diarrhea, constipation. 13:20 Back: Positive for flank pain, on the right. 13:20 All other systems are negative. Exam: 13:20 Constitutional: This is a well developed, well nourished patient who is awake, alert, kb and in no acute distress. Head/Face: Normocephalic, atraumatic. ENT: Moist Mucous membranes Cardiovascular: Regular rate and rhythm with a normal S1 and S2. No gallops, murmurs, or rubs. No pulse deficits. Respiratory: Respirations even and unlabored. No increased work of breathing. Talking in full sentences Back: No spinal tenderness. No costovertebral tenderness. Full range of motion. Skin: Warm, dry with normal turgor. Normal color. MS/ Extremity: Pulses equal, no cyanosis. Neurovascular intact. Full, normal range of motion. Neuro: Awake and alert, GCS 15, oriented to person, place, time, and situation. Moves all extremities. Normal gait. 13:20 Abdomen/GI: Inspection: abdomen appears normal, Bowel sounds: normal, Palpation: soft, in all quadrants, mild abdominal tenderness, in the right lower quadrant. Vital Signs: 10:50 BP 128 / 85; Pulse 71; Resp 14; Temp 98.4(O); Pulse Ox 100% on R/A; eh3 11:42 BP 115 / 74; Pulse 71; Resp 16; Temp 98.3; Pulse Ox 98% ; Pain 5/10; sm8 12:45 BP 120 / 77; Pulse 68; Resp 18; Pulse Ox 100% on R/A; eh3 11:42 Pain Scale: Adult sm8 MDM: 10:50 Patient medically screened. kb 13:20 Differential diagnosis: nephrolithiasis, pyelonephritis, UTI, appendicitis. Data kb reviewed: vital signs, nurses notes. Counseling: I had a detailed discussion with the patient and/or guardian regarding: the historical points, exam findings, and any diagnostic results supporting the discharge/admit diagnosis, lab results, radiology results, the need for outpatient follow up, a family practitioner, an OB/Gyne specialist, to return to the emergency department if symptoms worsen or persist or if there are any questions or concerns that arise at home. 06/03 10:53 Order name: CBC with Diff; Complete Time: 11:53 kb 06/03 10:53 Order name: CMP; Complete Time: 12:12 kb 06/03 10:53 Order name: Lipase; Complete Time: 12:12 kb 06/03 10:53 Order name: Test, Urine; Complete Time: 11:39 kb 06/03 10:53 Order name: Urinalysis w/ reflexes; Complete Time: 11:42 kb 06/03 10:53 Order name: CT Abd/Pelvis - IV Contrast Only; Complete Time: 12:56 kb 06/03 10:53 Order name: IV Saline Lock; Complete Time: 11:13 kb 06/03 10:53 Order name: Labs collected and sent; Complete Time: 11:13 kb Administered Medications: 11:05 Drug: NS 0.9% IV 1000 ml Route: IV; Rate: 1 bolus; Site: left antecubital; eh3 12:30 Follow up: IV Status: Completed infusion; IV Intake: 1000ml 3 11:05 Drug: TORadol - Ketorolac IVP 15 mg Route: IVP; Site: left antecubital; 3 12:00 Follow up: Response: No adverse reaction; Pain is decreased eh3 11:05 Drug: Ondansetron IVP 4 mg Route: IVP; Site: left antecubital; 3 12:00 Follow up: Response: No adverse reaction; Nausea is decreased 3 Disposition: 16:50 Co-signature as Attending Physician, Jaquan Mejia MD I agree with the assessment and kdr plan of care. Disposition Summary: 06/03/23 13:13 Discharge Ordered Location: Home kb Condition: Stable kb Diagnosis - Noninfective gastroenteritis and colitis, unspecified kb - Hematuria, unspecified kb Followup: kb - With: Emergency Department - When: As needed - Reason: Worsening of condition Followup: kb - With: Private Physician - When: 2 - 3 days - Reason: Recheck today's complaints, Continuance of care, Re-evaluation by your physician Discharge Instructions: - Discharge Summary Sheet kb - Food Choices to Help Relieve Diarrhea, Adult kb - Viral Gastroenteritis, Adult kb - Urinary Tract Infection, Adult, [id number] kb Forms: - Medication Reconciliation Form kb - Thank You Letter kb - Antibiotic Education kb - Prescription Opioid Use kb - Patient Portal Instructions kb - Leadership Thank You Letter kb Prescriptions: - Augmentin 875-125 mg Oral Tablet - take 1 tablet by ORAL route every 12 hours for 10 days; 20 tablet; Refills: 0, kb Product Selection Permitted - Zofran 4 mg Oral Tablet - take 1 tablet by ORAL route every 6 hours As needed; 12 tablet; Refills: 0, kb Product Selection Permitted Signatures: Dispatcher [employer] Camille Paredes, VIGNESH-C Jaquan Abraham MD MD kdr Blanchard, Shelby, RN RN Xiomara Mcdonald RN RN 3
[2023-06-03 13:49] VITALS: TEMP 98.3
[2023-06-03 13:50] VITALS: BP 120/77; O2SAT 100
== END 2023-06-03 13:24 | disposition home or self-care (01) ==
LOC: ER 10:45
DX: K52.9 Noninfective gastroenteritis and colitis, unspecified (principal); R31.9 Hematuria, unspecified
CPT/HCPCS: 36415; 74177; 80053; 81001; 81025; 83690; 85025; 96361; 96374; 96375; 99284; J2405; J7030; Q9967

== ENCOUNTER → 2023-12-10 | Emergency (ER) | payer SELFPAY ==
[~2023-12-10] MED LIST: CYCLOBENZAPRINE 10 MG TAB ONE; KETOROLAC 30 MG/ML INJ ONE; dexAMETHasone 10 MG/ML VIAL ONE
--- NOTE | 2023-12-10 19:32 | RAD REPORT ---
EXAM DESCRIPTION: CT - C Spine Wo Con - 12/10/2023 7:25 pm CLINICAL HISTORY: Pain;Numbness/tingling COMPARISON: No comparisons TECHNIQUE: CT Scan was obtained of the cervical spine without contrast. Reformats were provided in t he sagittal and coronal plane. FINDINGS: No acute fracture of the cervical spine. No traumatic malalignment. No prevertebral edema. No significant focal degenerative changes. No suspicious thyroid nodules or lymphadenopathy. The hollis g apices are clear. Trace anterolisthesis of C2 on C3 which is probably of little significance. IMPRESSION: No fracture or traumatic malalignment of the cervical spine. No significant focal degene rative changes. If symptoms persist, could consider nonemergent cervical spine MRI.
--- NOTE | 2023-12-10 19:36 | ER ---
Nurse's Notes [facility] Name: Miladis Rodriguez Age: 38 yrs Sex: Female : 1985 Arrival Date: 12/10/2023 Time: 18:30 Bed 16 Private MD: Diagnosis: Strain of other muscles, fascia and tendons at shoulder and upper arm level, left arm, initial encounter Presentation: 12/10 18:37 Chief complaint: Patient states: left shoulder pain x 2 weeks, works at [employer] and ko1 might have pulled something. Coronavirus screen: At this time, the client does not indicate any symptoms associated with coronavirus-19. Ebola Screen: No symptoms or risks identified at this time. Initial Sepsis Screen: Does the patient meet any 2 criteria? No. Patient's initial sepsis screen is negative. Does the patient have a suspected source of infection? No. Patient's initial sepsis screen is negative. Risk Assessment: Do you want to hurt yourself or someone else? Patient reports no desire to harm self or others. Onset of symptoms is unknown. 18:37 Method Of Arrival: Ambulatory ko1 18:37 Acuity: BRIAN 4 ko1 Triage Assessment: 18:41 General: Appears in no apparent distress. uncomfortable, Behavior is calm, cooperative, ko1 appropriate for age. Pain: Complains of pain in left supraclavicular area and left arm. Historical: - Allergies: 18:41 No Known Allergies; ko1 - Home Meds: 18:41 None [Active]; ko1 - PMHx: 18:41 None; ko1 - PSHx: 18:41 None; ko1 - Immunization history:: Adult Immunizations up to date. - Social history:: Smoking status: Patient denies any tobacco usage or history of. Screenin:10 [facility] ED Fall Risk Assessment (Adult) Score/Fall Risk Level 0 - 2 = Low Risk nj1 Oriented to surroundings, Maintained a safe environment, Hourly rounding (assess needs \T\ fall precautionary measures) done. Abuse screen: Denies threats or abuse. Denies injuries from another. Nutritional screening: No deficits noted. Tuberculosis screening: No symptoms or risk factors identified. Assessment: 19:10 General: Appears in no apparent distress. uncomfortable, Behavior is calm, cooperative, nj1 appropriate for age. Pain: Complains of pain in neck, left Pain currently is 5 out of 10 on a pain scale. 19:10 Neuro: Level of Consciousness is awake, alert, obeys commands, Oriented to person, nj1 place, time, situation. Cardiovascular: Patient's skin is warm and dry. Respiratory: Airway is patent Respiratory effort is even, unlabored. Musculoskeletal: Reports pain in neck, left. 19:46 Reassessment: Patient appears in no apparent distress at this time. Patient is alert, nj1 oriented x 3, equal unlabored respirations, skin warm/dry/pink. Patient states feeling better. Vital Signs: 18:37 BP 149 / 100; Pulse 95; Resp 16; Temp 97.7; Pulse Ox 100% ; ko1 19:46 Pain 3/10; nj1 19:46 Pain 3/10; nj1 19:47 BP 120 / 83; Pulse 73; Resp 16; Pulse Ox 98% on R/A; Pain 3/10; nj1 19:46 Pain Scale: Adult nj1 19:46 Pain Scale: Adult nj1 19:47 Pain Scale: Adult nj1 ED Course: 18:34 Patient arrived in ED. im 18:38 Ramandeep Dowd PA-C is PHCP. sb4 18:38 Contreras Humphreys MD is Attending Physician. sb4 18:41 Triage completed. ko1 18:41 Arm band placed on right wrist. Patient placed in waiting room, Patient notified of ko1 wait time. 18:45 Chelsea Heaton, RN is Primary Nurse. nj1 19:00 Report given to Zuri RN. nj1 19:10 Patient has correct armband on for positive identification. Bed in low position. Call nj1 light in reach. Provided Education on: call light, fall precautions. 19:27 CT C Spine In Process Unspecified. EDMS 19:47 No provider procedures requiring assistance completed. Patient did not have IV access nj1 during this emergency room visit. Administered Medications: 19:10 Drug: Cyclobenzaprine PO 10 mg PO once Route: PO; nj1 19:46 Follow up: Pain 3/10 Adult; Response: No adverse reaction; Pain is decreased nj1 19:11 Drug: Dexamethasone IM 10 mg IM once Route: IM; Site: left gluteus; nj1 19:46 Follow up: Response: No adverse reaction nj1 19:12 Drug: Ketorolac IM 30 mg IM once Route: IM; Site: right gluteus; nj1 19:46 Follow up: Pain 12/30 Adult; Response: No adverse reaction; Pain is decreased nj1 Medication: 19:47 VIS not applicable for this client. nj1 Outcome: 19:36 Discharge ordered by . [email or web address] 19:47 Discharged to home ambulatory, nj1 19:47 Condition: stable 19:47 Discharge instructions given to patient, Instructed on discharge instructions, follow up and referral plans. medication usage, Demonstrated understanding of instructions, follow-up care, medications, Prescriptions given X 3, 19:48 Patient left the ED. nj1 Signatures: Dispatcher [employer] EDMS Charlotte Figueroa RN RN ko1 Ramandeep Dowd, PA-C PA-C sb4 Chelsea Heaton RN RN nj1 Iva Rollins im
--- NOTE | 2023-12-10 19:36 | EDPHYS ---
Physician Documentation [facility] Name: Miladis Rodriguez Age: 38 yrs Sex: Female : 1985 Arrival Date: 12/10/2023 Time: 18:30 Bed 16 Private MD: ED Physician Contreras Humphreys HPI: 12/10 18:48 This 38 yrs old Female presents to ER via Ambulatory with complaints of sb4 Shoulder Pain, Arm Pain. 18:48 Onset: The symptoms/episode began/occurred 2 week(s) ago. Modifying factors: the sb4 symptoms are alleviated by remaining still, The symptoms are aggravated by lifting weight, movement, rotation of arm. Treatment prior to arrival includes: over the counter medications, NSAIDS, Tylenol. The patient has not experienced similar symptoms in the past. The patient has not recently seen a physician. 18:50 left arm. sb4 Historical: - Allergies: 18:41 No Known Allergies; ko1 - Home Meds: 18:41 None [Active]; ko1 - PMHx: 18:41 None; ko1 - PSHx: 18:41 None; ko1 - Immunization history:: Adult Immunizations up to date. - Social history:: Smoking status: Patient denies any tobacco usage or history of. ROS: 18:49 Constitutional: Negative for fever, chills, and weight loss, sb4 18:49 All other systems are negative, 18:50 MS/extremity: Positive for pain, of the left shoulder, sb4 Exam: 18:49 Constitutional: This is a well developed, well nourished patient who is awake, alert, sb4 and in no acute distress. Head/Face: Normocephalic, atraumatic. Eyes: Extra-ocular motions intact. Periorbital areas with no swelling, redness, or edema. ENT: Mucous membranes moist. Skin: Warm, dry with normal turgor. Normal color with no rashes, no lesions, and no evidence of cellulitis. Neuro: Awake and alert, GCS 15, oriented to person, place, time, and situation. Motor strength 5/5 in all extremities. Sensory grossly intact. 18:49 Musculoskeletal/extremity: ROM: limited active range of motion due to pain, limited passive range of motion due to pain, in the left arm, Circulation is intact in all extremities. Pulses: are normal with no appreciated deficits, Perfusion: the extremity is normally perfused throughout, Sensation intact. Vital Signs: 18:37 BP 149 / 100; Pulse 95; Resp 16; Temp 97.7; Pulse Ox 100% ; ko1 19:46 Pain 3/10; nj1 19:46 Pain 3/10; nj1 19:47 BP 120 / 83; Pulse 73; Resp 16; Pulse Ox 98% on R/A; Pain 3/10; nj1 19:46 Pain Scale: Adult nj1 19:46 Pain Scale: Adult nj1 19:47 Pain Scale: Adult nj1 MDM: 18:43 Patient medically screened. sb4 18:51 Differential diagnosis: tendonitis, pinched nerve, muscle strain. sb4 19:35 Data reviewed: vital signs, nurses notes, radiologic studies, and as a result, I will sb4 discharge patient. Counseling: I had a detailed discussion with the patient and/or guardian regarding the historical points, exam findings, and any diagnostic results supporting the discharge/admit diagnosis, radiology results, to return to the emergency department if symptoms worsen or persist or if there are any questions or concerns that arise at home. 12/10 18:48 Order name: CT C Spine; Complete Time: 19:34 sb4 Administered Medications: 19:10 Drug: Cyclobenzaprine PO 10 mg PO once Route: PO; nj1 19:46 Follow up: Pain 3/10 Adult; Response: No adverse reaction; Pain is decreased nj1 19:11 Drug: Dexamethasone IM 10 mg IM once Route: IM; Site: left gluteus; nj1 19:46 Follow up: Response: No adverse reaction nj1 19:12 Drug: Ketorolac IM 30 mg IM once Route: IM; Site: right gluteus; nj1 19:46 Follow up: Pain 3/10 Adult; Response: No adverse reaction; Pain is decreased nj1 Disposition: 12/11 07:12 Co-signature as Attending Physician, Contreras Humphreys MD I reviewed the patient's care rt provided by the Advanced Practice Provider and agree with the diagnosis and treatment plan. Disposition Summary: 12/10/23 19:36 Discharge Ordered Notes: Location: Home sb4 Problem: an ongoing problem sb4 Symptoms: have improved sb4 Condition: Stable sb4 Diagnosis - Strain of other muscles, fascia and tendons at shoulder and upper arm level, left sb4 arm, initial encounter Followup: sb4 - With: Emergency Department - When: As needed - Reason: Trouble breathing, Worsening of condition Discharge Instructions: - Discharge Summary Sheet sb4 - Muscle Strain sb4 - Pinched Nerve sb4 Forms: - Thank You Letter sb4 - Patient Portal Instructions sb4 - Leadership Thank You Letter sb4 Prescriptions: - Diclofenac Sodium 75 mg Oral Tablet Sustained Release - take 1 tablet ORAL route 2 times per day; 30 tablet; Refills: 0, Product sb4 Selection Permitted - Medrol (Darius) 4 mg Oral Tablets, Dose Pack - take 1 tablet ORAL route as directed - follow package instructions; 1 packet; sb4 Refills: 0, Product Selection Permitted - Cyclobenzaprine 5 mg Oral Tablet - take 1 tablet ORAL route 3 times per day As needed; 15 tablet; Refills: 0, sb4 Product Selection Permitted Signatures: Dispatcher [employer] Charlotte Song, RN RN ko1 Ramandeep Dowd, JOVANNY PETTY sb4 Contreras Humphreys MD MD rt Chelsea Heaton RN RN nj1 Corrections: (The following items were deleted from the chart) 12/10 18:50 18:48 The patient or guardian complains of pain, that is acute, sb4 sb4 18:50 18:48 right trapezius sb4 sb4 18:50 18:48 Modifying factors: the symptoms are alleviated by remaining still, The symptoms sb4 are aggravated by lifting weight, movement, rotation of arm, sb4 18:51 18:49 MS/extremity: Positive for pain, of the right trapezius, sb4 sb4 18:51 18:50 MS/extremity: Positive for pain, sb4 sb4 18:51 18:49 Musculoskeletal/extremity: ROM: limited active range of motion due to pain, sb4 limited passive range of motion due to pain, in the left arm, sb4
[2023-12-10 20:12] VITALS: BP 120/83; TEMP 97.7; O2SAT 98
== END ==
LOC: ER 18:30
DX: S46.812A Strain of other muscles, fascia and tendons at shoulder and upper arm level, left arm, initial encounter (principal)
CPT/HCPCS: 72125; 96372; 99284; J1100

== ENCOUNTER 2024-04-30 18:34 | Emergency (ER) | payer SELFPAY ==
[2024-04-30] MEDS ORDERED: ACETAMINOPHEN 500 MG TAB ONE (20:16)
[2024-04-30] MEDS ORDERED: ONDANSETRON 4 MG (ODT) TAB ONE (20:16)
[2024-04-30 21:13] LABS: Urine Bacteria <20 /HPF (<20); Urine Bilirubin NEGATIVE (Negative); Urine Blood 2+ (Negative); Urine Clarity Extremely Turbid (Clear); Urine Color Light-Yellow (Yellow); Urine Culture Reflex Order NOT NEEDED; Urine Glucose NEGATIVE (Negative); Urine Ketones 2+ (Negative); Urine Microscopic Reflex YN ORDER UMIC; Urine Mucus 1+ /HPF (None Seen); Urine Nitrite NEGATIVE (Negative); Urine Protein NEGATIVE (Negative); Urine Urobilinogen Normal (Normal); Urine WBC <5 /HPF (<5); Urine pH 5.5 (5.0-7.0)
[2024-04-30 21:31] LABS: SARS-CoV-2 Antigen CONTROL BLUE LINE VIS/BG OK; SARS-CoV-2 Antigen Rapid Res Negative (Negative)
--- NOTE | 2024-04-30 21:54 | ER ---
Nurse's Notes [facility] Name: Miladis Rodriguez Age: 38 yrs Sex: Female : 1985 Arrival Date: 04/30/2024 Time: 18:34 Bed 10 Private MD: Diagnosis: Nausea with vomiting, unspecified;Dizziness and giddiness Presentation: 04/30 19:06 Chief complaint: Patient states: woke up feeling very dehydrated and dizzy. Coronavirus as6 screen: At this time, the client does not indicate any symptoms associated with coronavirus-19. Ebola Screen: No symptoms or risks identified at this time. Initial Sepsis Screen: Does the patient meet any 2 criteria? No. Patient's initial sepsis screen is negative. Does the patient have a suspected source of infection? No. Patient's initial sepsis screen is negative. Risk Assessment: Do you want to hurt yourself or someone else? Patient reports no desire to harm self or others. Onset of symptoms was April 30, 2024. 19:06 Method Of Arrival: Wheelchair as6 19:06 Acuity: BRIAN 3 as6 Triage Assessment: 22:16 General: Appears in no apparent distress. comfortable, Behavior is calm, cooperative. cm10 Pain: Denies pain. 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 - Infectious Disease History:: Denies. - Social history:: Smoking status: Patient denies any tobacco usage or history of. Screenin:14 [facility] ED Fall Risk Assessment (Adult) History of falling in the last 3 months, cm10 including since admission No falls in past 3 months (0 pts) Confusion or Disorientation No (0 pts) Intoxicated or Sedated No (0 pts) Impaired Gait No (0 pts) Mobility Assist Device Used No (0 pt) Altered Elimination No (0 pt) Score/Fall Risk Level 0 - 2 = Low Risk Oriented to surroundings, Maintained a safe environment, Hourly rounding (assess needs \T\ fall precautionary measures) done. Abuse screen: Denies threats or abuse. Denies injuries from another. Nutritional screening: No deficits noted. Tuberculosis screening: No symptoms or risk factors identified. Vital Signs: 19:06 BP 147 / 81; Pulse 75; Resp 18; Temp 98(TE); Pulse Ox 99% ; Weight 74.84 kg; Height 5 as6 ft. 2 in. ; Pain 0/10; 19:06 Body Mass Index 30.18 (74.84 kg, 157.48 cm) as6 19:06 Pain Scale: Adult as6 ED Course: 18:39 Patient arrived in ED. im 18:42 Guero Mcdaniels PA is PHCP. cp 18:42 Bruce Love DO is Attending Physician. cp 19:05 Arm band placed on. as6 19:07 Triage completed. as6 20:10 Jazmin Moseley, RN is Primary Nurse. al5 22:14 Patient has correct armband on for positive identification. Provided Education on: cm10 follow-up instructions. 22:15 No provider procedures requiring assistance completed. Patient did not have IV access cm10 during this emergency room visit. Administered Medications: 20:32 Drug: Ondansetron PO 4 mg PO once Route: PO; eb1 21:44 Follow up: Response: No adverse reaction cm10 20:32 Drug: Acetaminophen PO 1000 mg PO once Route: PO; eb1 21:44 Follow up: Response: No adverse reaction cm10 Medication: 22:16 VIS not applicable for this client. cm10 Outcome: 21:54 Discharge ordered by MD. cp 22:16 Discharged to home ambulatory, cm10 22:16 Condition: good 22:16 Discharge instructions given to patient, Instructed on discharge instructions, follow up and referral plans. Demonstrated understanding of instructions, follow-up care, medications, Prescriptions given X 2, 22:16 Patient left the ED. cm10 Signatures: Guero Mcdaniels PA PA cp Basinger, Emily RN RN eb1 Lucas Peter, RN RN as6 Iva Rollins Clarissa, RN RN cm10 Jazmin Moseley, ALEX JOHNSON al5
--- NOTE | 2024-04-30 21:54 | EDPHYS ---
Physician Documentation [facility] Name: Miladis Rodriguez Age: 38 yrs Sex: Female : 1985 Arrival Date: 04/30/2024 Time: 18:34 Bed 10 Private MD: ED Physician Bruce Love HPI: 04/30 19:20 This 38 yrs old Female presents to ER via Wheelchair with complaints of cp Dehydration. 19:20 The patient presents with lightheadedness. Onset: The symptoms/episode began/occurred cp this morning, upon awakening. 19:20 Associated signs and symptoms: Pertinent positives: nausea, dizzy, Pertinent negatives: cp abdominal pain, chest pain, vomiting. Severity of symptoms: in the emergency department the symptoms are unchanged despite home interventions. Patient's baseline: Neuro: alert and fully oriented, Motor: no deficits, Ambulation: walks without assistance, Speech: normal. 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 - Infectious Disease History:: Denies. - Social history:: Smoking status: Patient denies any tobacco usage or history of. ROS: 19:25 Constitutional: Negative for body aches, chills, fever, poor PO intake, cp 19:25 Eyes: Negative for injury, pain, redness, and discharge, cp 19:25 ENT: Negative for drainage from ear(s), ear pain, sore throat, difficulty swallowing, difficulty handling secretions, 19:25 Cardiovascular: Negative for chest pain, palpitations, 19:25 Respiratory: Negative for cough, shortness of breath, wheezing, 19:25 Abdomen/GI: Positive for nausea, Negative for abdominal pain, vomiting, diarrhea, constipation, 19:25 Back: Negative for pain at rest, pain with movement, 19:25 Skin: Negative for cellulitis, rash, 19:25 Neuro: Positive for dizziness, Negative for altered mental status, loss of consciousness, syncope, weakness, 19:25 All other systems are negative, Exam: 19:30 Constitutional: The patient appears in no acute distress, alert, awake, non-toxic, well cp developed, well nourished, overweight 19:30 Head/Face: Normocephalic, atraumatic. cp 19:30 Eyes: Periorbital structures: appear normal, Conjunctiva: normal, no exudate, no injection, Sclera: no appreciated abnormality, Lids and lashes: appear normal, bilaterally, 19:30 ENT: External ear(s): are unremarkable, Nose: is normal, Mouth: Lips: moist, Oral mucosa: moist, Posterior pharynx: Airway: no evidence of obstruction, patent, 19:30 Neck: ROM/movement: is normal, is supple, without pain, no range of motions limitations, 19:30 Chest/axilla: Inspection: normal, 19:30 Cardiovascular: Rate: normal, Rhythm: regular, 19:30 Respiratory: the patient does not display signs of respiratory distress, Respirations: normal, Breath sounds: are clear throughout, no decreased breath sounds, no stridor, no wheezing, 19:30 Abdomen/GI: Inspection: abdomen appears normal, Palpation: abdomen is soft and non-tender, in all quadrants, 19:30 Back: pain, is absent, ROM is normal, 19:30 Neuro: Orientation: to person, place \T\ time. Mentation: is normal, Cerebellar function: is grossly normal, Motor: moves all fours, strength is normal, Sensation: is normal, Vital Signs: 19:06 BP 147 / 81; Pulse 75; Resp 18; Temp 98(TE); Pulse Ox 99% ; Weight 74.84 kg; Height 5 as6 ft. 2 in. ; Pain 0/10; 19:06 Body Mass Index 30.18 (74.84 kg, 157.48 cm) as6 19:06 Pain Scale: Adult as6 MDM: 19:09 Patient medically screened. cp 20:00 Differential diagnosis: hypovolemia, idiopathic dizziness, . 21:53 Data reviewed: vital signs, nurses notes, and as a result, I will discharge patient. cp 21:53 I considered the following discharge prescriptions or medication management in the emergency department Medications were administered in the Emergency Department. See MAR. Counseling: I had a detailed discussion with the patient and/or guardian regarding the historical points, exam findings, and any diagnostic results supporting the discharge/admit diagnosis, to return to the emergency department if symptoms worsen or persist or if there are any questions or concerns that arise at home. Response to treatment: the patient's symptoms have markedly improved after treatment, and as a result, I will discharge patient. 04/30 19:13 Order name: SARS RAPID cp 04/30 21:07 Order name: SARS-COV-2 Antigen Rapid; Complete Time: 21:48 EDMS 04/30 21:07 Order name: Test, Urine; Complete Time: 21:24 EDMS 04/30 21:07 Order name: Urinalysis w/ reflexes; Complete Time: 21:24 EDMS 04/30 21:25 Interpretation: Normal except: [facility] Extremely Turbid; UKET 2+; UBLD 2+; URBC 5-10. cp 04/30 21:07 Order name: Influenza Screen (A ; Complete Time: 21:48 EDMS 04/30 20:31 Order name: PO challenge; Complete Time: 21:51 cp Administered Medications: 20:32 Drug: Ondansetron PO 4 mg PO once Route: PO; eb1 21:44 Follow up: Response: No adverse reaction cm10 20:32 Drug: Acetaminophen PO 1000 mg PO once Route: PO; eb1 21:44 Follow up: Response: No adverse reaction cm10 Disposition Summary: 04/30/24 21:54 Discharge Ordered Notes: Location: Home cp Problem: new cp Symptoms: have improved cp Condition: Stable cp Diagnosis - Nausea with vomiting, unspecified cp - Dizziness and giddiness cp Followup: cp - With: Private Physician - When: 2 - 3 days - Reason: Worsening of condition Discharge Instructions: - Discharge Summary Sheet cp - Dizziness cp - Nausea and Vomiting, Adult cp Forms: - Medication Reconciliation Form cp - Antibiotic Education cp - Prescription Opioid Use cp - Patient Portal Instructions cp - Leadership Thank You Letter cp Prescriptions: - Meclizine 25 mg Oral Tablet - take 1 tablet ORAL route every 8 hours As needed; 30 tablet; Refills: 0, cp Product Selection Permitted - Zofran 4 mg Oral Tablet - take 1 tablet ORAL route every 12 hours As needed; 20 tablet; Refills: 0, cp Product Selection Permitted Addendum: 05/03/2024 17:02 I was immediately available on-site in the Emergency Department for consultation in the m s3 care of the patient. Signatures: [facility] Guero Mcdaniels PA PA cp Basinger, Emily, RN RN eb1 Bruce Love DO DO ms3 Lucas Peter, ALEX RN as6 Linh Kaiser RN cm10
[2024-05-01 01:07] VITALS: BP 147/81; TEMP 98; O2SAT 99
== END 2024-04-30 22:16 | disposition home or self-care (01) ==
LOC: ER 18:34
DX: E86.0 Dehydration (principal); R11.2 Nausea with vomiting, unspecified; R42 Dizziness and giddiness
CPT/HCPCS: 36415; 81001; 81025; 87804; 87811; 99283; Q0162

== ENCOUNTER 2024-12-03 16:56 | Emergency (ER) | payer SELFPAY ==
--- NOTE | 2024-12-03 17:08 | ER ---
Nurse's Notes [facility] Name: Miladis Rodriguez Age: 39 yrs Sex: Female : 1985 Arrival Date: 12/03/2024 Time: 16:56 Bed IW1 Private MD: Diagnosis: Cellulitis of head [any part, except face] Presentation: 12/03 17:02 Chief complaint: Patient states: got bit by something on Monday behind her right ear me1 and it has continued to swell, become warm to the touch and painful. Denies fever. Coronavirus screen: Vaccine status: Patient reports receiving the 2nd dose of the covid vaccine. Ebola Screen: No symptoms or risks identified at this time. Initial Sepsis Screen: Does the patient meet any 2 criteria? HR > 90 bpm. Risk Assessment: Do you want to hurt yourself or someone else? Patient reports no desire to harm self or others. Onset of symptoms was November 30, 2024. 17:02 Method Of Arrival: Ambulatory [facility] 17:02 Acuity: BRIAN 4 ok1 17:48 Initial Sepsis Screen: Does the patient have a suspected source of infection?. me1 Triage Assessment: 17:07 General: Appears uncomfortable, unkempt, well developed, well nourished, Behavior is me1 calm, cooperative, appropriate for age. Pain: Complains of pain in right base of the skull Pain does not radiate. Pain currently is 8 out of 10 on a pain scale. Quality of pain is described as throbbing, Pain began 2-3 days ago. Is continuous. EENT: No signs and/or symptoms were reported regarding the EENT system. Neuro: Level of Consciousness is awake, alert, obeys commands, Oriented to person, place, time, situation, Appropriate for age. Cardiovascular: Patient's skin is warm and dry. Respiratory: Airway is patent Respiratory effort is even, unlabored, Respiratory pattern is regular, symmetrical. GI: No signs and/or symptoms were reported involving the gastrointestinal system. : No signs and/or symptoms were reported regarding the genitourinary system. Derm: Skin is healthy with good turgor, Skin is pink, warm \T\ dry. Wound noted right base of the skull Wound is red, swollen and warm area. Musculoskeletal: No signs and/or symptoms reported regarding the musculoskeletal system. 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 - Infectious Disease History:: Denies. - Social history:: Smoking status: Patient denies any tobacco usage or history of. Screenin:09 [facility] ED Fall Risk Assessment (Adult) History of falling in the last 3 months, me1 including since admission No falls in past 3 months (0 pts) Confusion or Disorientation No (0 pts) Intoxicated or Sedated No (0 pts) Impaired Gait No (0 pts) Mobility Assist Device Used No (0 pt) Altered Elimination No (0 pt) Score/Fall Risk Level 0 - 2 = Low Risk Maintained a safe environment, Provided non-skid footwear, Hourly rounding (assess needs \T\ fall precautionary measures) done. Abuse screen: Denies threats or abuse. Nutritional screening: No deficits noted. Tuberculosis screening: No symptoms or risk factors identified. Assessment: 17:09 General: See triage assessment.. me1 Vital Signs: 17:02 BP 137 / 99; Pulse 90; Resp 16; Temp 98.3; Pulse Ox 100% ; Weight 80.29 kg; Height 4 me1 ft. 10 in. ; Pain 8/10; 17:02 Body Mass Index 36.99 (80.29 kg, 147.32 cm) me1 17:02 Pain Scale: Adult ok1 ED Course: 16:58 Patient arrived in ED. mr 16:59 Bruce Love DO is Attending Physician. ms3 17:04 Triage completed. me1 17:04 Arm band placed on Patient placed in an exam room. me1 17:08 Constantino Ramos DO is Referral Physician. ms3 17:09 Patient has correct armband on for positive identification. Bed in low position. Call me1 light in reach. Side rails up X 1. Provided Education on: POC. Verbalized understanding.. 17:09 No provider procedures requiring assistance completed. Patient did not have IV access [facility] during this emergency room visit. 17:26 Dayna Dickens, RN is Primary Nurse. me1 Administered Medications: No medications were administered Medication: 17:09 VIS not applicable for this client. me1 Outcome: 17:08 Discharge ordered by . ms3 17:48 Discharged to home ambulatory, me1 17:48 Condition: stable 17:48 Discharge instructions given to patient, Instructed on discharge instructions, follow up and referral plans. medication usage, Demonstrated understanding of instructions, follow-up care, medications, Prescriptions given X 1, 17:48 Patient left the ED. me1 Signatures: Madina Ardon, Reg Reg Bruce Longoria, DO DO ms3 Dayna Dickens, RN RN me1
--- NOTE | 2024-12-03 17:09 | EDPHYS ---
Physician Documentation [facility] Name: Miladis Rodriguez Age: 39 yrs Sex: Female : 1985 Arrival Date: 12/03/2024 Time: 16:56 Bed IW1 Private MD: ED Physician Bruce Love HPI: 12/03 17:09 This 39 yrs old Female presents to ER via Ambulatory with complaints of Neck ms3 Swelling. 17:09 39-year-old female with no past medical history presents to the emergency department ms3 for right posterior neck pain and swelling. Patient states she thinks she may have been bitten by an insect and the pain and swelling is progressed. Patient rates the discomfort an 8/10. Patient states she took Tylenol without relief of her symptoms. Patient denies fevers, chills, nausea, vomiting. 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 - Infectious Disease History:: Denies. - Social history:: Smoking status: Patient denies any tobacco usage or history of. ROS: 17:09 Constitutional: Negative for fever, and chills. Cardiovascular: Negative for chest ms3 pain, and palpitations. Respiratory: Negative for shortness of breath, cough, wheezing, and pleuritic chest pain, Abdomen/GI: Negative for abdominal pain, nausea, vomiting, diarrhea, and constipation, MS/Extremity: Negative for injury and deformity, 17:09 Skin: Positive for erythema, rash, Exam: 17:09 Constitutional: This is a well developed, well nourished patient who is awake, alert, ms3 and in no acute distress. Cardiovascular: Regular rate and rhythm with a normal S1 and S2. No gallops, murmurs, or rubs. Normal PMI, no JVD. No pulse deficits. Respiratory: Lungs have equal breath sounds bilaterally, clear to auscultation and percussion. No rales, rhonchi or wheezes noted. No increased work of breathing, no retractions or nasal flaring. Abdomen/GI: Soft, non-tender, with normal bowel sounds. No distension or tympany. No guarding or rebound. No evidence of tenderness throughout. 17:09 Skin: cellulitis, that is moderate, on the right base of the skull, Vital Signs: 17:02 BP 137 / 99; Pulse 90; Resp 16; Temp 98.3; Pulse Ox 100% ; Weight 80.29 kg; Height 4 me1 ft. 10 in. ; Pain 8/10; 17:02 Body Mass Index 36.99 (80.29 kg, 147.32 cm) me1 17:02 Pain Scale: Adult me1 MDM: 17:08 Medical Screening Exam initiated ms3 17:09 Differential diagnosis: Insect bite vs Cellulitis vs Zoster. Less likely zoster as no ms3 vesicles are present. 17:09 Data reviewed: vital signs, nurses notes, and as a result, I will discharge patient. I ms3 considered the following discharge prescriptions or medication management in the emergency department See Rx. Counseling: I had a detailed discussion with the patient and/or guardian regarding the historical points, exam findings, and any diagnostic results supporting the discharge/admit diagnosis, the need for outpatient follow up, to return to the emergency department if symptoms worsen or persist or if there are any questions or concerns that arise at home. Special discussion: I discussed with the patient/guardian in detail that at this point there is no indication for admission to the hospital. It is understood, however, that if the symptoms persist or worsen the patient needs to return immediately for re-evaluation. ED course: Discussed physical exam findings with patient. Patient to follow-up with primary care physician in 2 to 3 days. All questions were answered. Return precautions discussed include worsening symptoms, or any other concerns.. Administered Medications: No medications were administered Disposition Summary: 12/03/24 17:08 Discharge Ordered Notes: Location: Home ms3 Condition: Stable ms3 Diagnosis - Cellulitis of head [any part, except face] ms3 Followup: ms3 - With: Constantino Ramos DO - When: 2 - 3 days - Reason: Re-evaluation by your physician Discharge Instructions: - Discharge Summary Sheet ms3 - Cellulitis, Adult ms3 Forms: - Medication Reconciliation Form ms3 - Antibiotic Education ms3 - Prescription Opioid Use ms3 - Patient Portal Instructions ms3 - Leadership Thank You Letter ms3 Prescriptions: - Doxycycline Monohydrate 100 mg Oral Tablet - take 1 tablet ORAL route every 12 hours for 10 days; 20 tablet; Refills: 0, ms3 Product Selection Permitted Signatures: Bruce Love DO DO ms3 Dayna Dickens, RN RN me1
[2024-12-03 21:36] VITALS: BP 137/99; TEMP 98.3; O2SAT 100
== END 2024-12-03 17:48 | disposition home or self-care (01) ==
LOC: ER 16:56
DX: L03.811 Cellulitis of head [any part, except face] (principal)